=== PATIENT | female | born 1990 | race Caucasian/White ===

== ENCOUNTER 2023-05-27 16:53 | Emergency (ER) | payer OTHER, SELFPAY ==
[2023-05-27 16:56] VITALS: BP 168/113
--- NOTE | 2023-05-27 20:06 | ED.GENMED ---
History of Present Illness
General
Chief Complaint: Musculo-Skeletal Complaint
Source: patient
Exam Limitations: none
Time Seen by Provider: 05/27/23 17:49
Nursing documentation reviewed up to this point in time: agreed with
Travel History
Have you had any contact with someone who has COVID-19?: No
Do you have any symptoms of coronavirus? Fever > 100 degrees, chills, cough, shortness of breath, sore throat, loss of taste or smell, muscle aches, or headache?: No
History of Present Illness
History of Present Illness:
32-year-old female with past medical history of hypertension hyperlipidemia and NIDDM presenting to the emergency department today with concerns of right great toe swelling and discomfort after dropping a wooden tray table on her toe 3 days ago.
Has had worsening swelling discomfort to the area since. Also noted some increasing redness and warmth. Denies any fevers or systemic symptoms.
Past History
Past History
ED Past Medical History: HTN, Hypercholesterolemia and Other (L3/4 and L4/5 disc herniation)
Patient has exhibited threatening behavior?: No
Social History
Tobacco: Smoker
Alcohol: None
Drug: None
Personal: Single
Living: with family
Review of Systems
Review of Systems
Allergies reviewed?: Yes
All Other Systems: ROS reviewed and negative except as documented in HPI and ROS
Phy Exam
Physical Exam
Physical Exam:
GENERAL: Alert , in no apparent distress
EYE: pupils equal and reactive
NECK: Supple, no significant adenopathy.
ENT: o/p clr, mmm.
CARDIAC: Regular rate and rhythm .
LUNGS: Clear breath sounds bilaterally, no acute respiratory distress, no wheezes/rales/rhonchi
ABDOMEN: Soft, without focal tenderness, no r/g, no cvat
NEUROLOGICAL: Alert and oriented, no focal neuro deficits
SKIN: Warm and dry, skin intact.
MUSCULOSKELETAL: No edema, well perfused.
PSYCH: Normal and appropriate interaction.
Swelling to right great toe with what appears to be a subungual hematoma
Course
Orders/Labs/Results
Orders:
Orders
05/27/23 17:49
CR Foot - Right Min 3 Views Urgent
Comment:
Reason For Exam: great tpoe pain, injury
Vital Signs
Initial and Last Documented VS:
Initial Vital Signs
Temp Pulse Resp BP Pulse Ox
98.1 F 85 18 168/113 100
05/27/23 16:56 05/27/23 16:56 05/27/23 16:56 05/27/23 16:56 05/27/23 16:56
Last Documented Vital Signs
Temp Pulse Resp BP Pulse Ox
98.1 F 85 18 168/113 100
05/27/23 16:56 05/27/23 16:56 05/27/23 16:56 05/27/23 16:56 05/27/23 16:56
Procedures
Nail Trepanation/Felon
Method of Drainage: nail cauterized
Sterile dressing applied: Yes
Additional information:
Large amount of blood removed bandage placed
MDM/Problems Addressed
MDM/Problems Addressed:
32-year-old female presenting to the emergency department today with concerns of discomfort to the right great toe after dropping a tray table on her toe a few days ago. She appears have a subungual hematoma no signs of fracture on x-ray.
Trephination performed with large amount of blood being drained. Patient with immediate improvement of symptoms. She is diabetic does have some redness and was started on Keflex to reduce risk of any infection otherwise stable for outpatient
management return precautions given.
*Critical Care Note
Total Time (30-74mins, 75-104mins- exclusive of procedures): Not Applicable
ED Attending Note
-
Portions of this chart may have been created with voice recognition software.� Occasional wrong word or��sound alike� substitutions may have occurred due to the inherent limitations of voice recognition software.
Discharge Plan
Departure
Patient Disposition: Home (Routine Discharge)
Date of Disposition: 05/27/23
Time of Disposition: 20:11
Patient with high blood pressure during this ER visit?: No
Condition: Good
Covid-19: Not Applicable
Discharge Problem:
Hematoma, subungual, toe, right
Instructions: Bruising Under the Nail
Prescriptions:
New
cephalexin 500 mg capsule
500 mg PO TID 3 Days Qty: 9 0RF
No Action
oxycodone-acetaminophen 1 EACH tablet
1 ea PO Q6HPRN PRN (Reason: pain) Qty: 20 0RF
Rx Instructions:
1-2 tabs every 6 hours for pain if needed
metaxalone [Skelaxin] 800 MG tablet
800 mg PO TID Qty: 20 0RF
naproxen [Naprosyn] 500 MG tablet
500 mg PO BID Qty: 20 0RF
prednisone 10 MG tablet
10 mg PO DAILY Qty: 10 0RF
Rx Instructions:
days 1-3 take 20 mg qd, then days 4-7 take 10 mg qd
albuterol sulfate [Proventil HFA] 90 MCG/PUFF HFA aerosol inhaler
2 puff inhalation Q4HPRN PRN (Reason: shortness of breath/cough) Qty: 1 0RF
codeine-guaifenesin [Guaiatussin AC] 10 ML liquid
10 ml PO Q6HPRN PRN (Reason: cough) Qty: 100 0RF
Rx Instructions:
200 mg guaifenesin/20 mg codeine per 10 mL
ondansetron 4 MG tablet,disintegrating
4 mg PO TIDPRN PRN (Reason: nausea/vomiting) Qty: 12 0RF
codeine-guaifenesin [Guaiatussin AC] 10 ML liquid
10 ml PO Q6HPRN PRN (Reason: cough) Qty: 100 0RF
Rx Instructions:
200 mg guaifenesin/20 mg codeine per 10 mL
Referrals:
Britt Solorzano DO [Family Provider] -
Stand Alone Forms: Return to Work
Activity Restrictions/Additional Instructions:
You came to the emergency department today with concerns of a subungual hematoma. This was drained. Please take the Keflex 3 times daily for the next 3 days to reduce risk of infection. Return to the emergency department for any worsening, new or
concerning symptoms.
Interventions
Interventions:
*Risk Screen - Suicide Last Done: 05/27/23 16:56
*General Assessment Last Done: 05/27/23 16:56
*ED COVID-19 Vaccine History Last Done: 05/27/23 16:56
ED-Musculoskeletal Assessment Last Done: 05/27/23 18:59
ED-Skin Assessment Last Done: 05/27/23 18:59
[2023-05-27] MEDS: KEFLEX 500 MG PO (20:19)
== END 2023-05-27 20:46 | disposition home or self-care (01) ==
LOC: EMR 16:53
PROVIDERS: EMERGENCY PHYSICIAN Emergency Medicine; FAMILY PHYSICIAN Family Medicine
DX: S90.211A Contusion of right great toe with damage to nail, initial encounter (principal); W20.8XXA Other cause of strike by thrown, projected or falling object, initial encounter; I10 Essential (primary) hypertension; M51.26 Other intervertebral disc displacement, lumbar region; E11.9 Type 2 diabetes mellitus without complications; F17.210 Nicotine dependence, cigarettes, uncomplicated; Z79.84 Long term (current) use of oral hypoglycemic drugs
CPT/HCPCS: 99283; 11740; 73630